=== PATIENT | male | born 1960 | race Caucasian/White ===

== ENCOUNTER 2019-04-14 09:20 | Day surgery (SDC) | payer OTHER ==
[~2019-04-14] VITALS: Ht 182.9 cm; Wt 88.5 kg
[~2019-04-14 09:20] MED LIST: AMLO5 PO; CEPH500 PO; CYCL10 PO; GABA400 PO; GABA800 PO; HYDACE5325 PO; LISI20 PO; NAPR500 PO; PRAZ1 PO; RXHYD5325 PO
--- NOTE | 2019-04-14 11:39 | NUR ---
04/14/[address] IN TO SEE PATIENT. TIME OUT PERFORMED. NERVE BLOCK TO LEFT WRIST/PALM WITH LIDOCAINE WITH EPI. PATIENT TOLERATED WELL. DENIES QUESTIONS AT THIS TIME. ADVISED OF CHANGE IN ANESTHESIA TO DR. LADD. PATIENT UP TO BATHROOM WITH SBA.
== END 2019-04-14 12:45 | disposition home or self-care (01) ==
LOC: ORSCSDS 09:20
PROVIDERS: Orthopaedic Surgery
PROC: 01N54ZZ Release Median Nerve, Percutaneous Endoscopic Approach (ICD-10-PCS; principal; 2019-04-14 11:00)
DX: G56.02 Carpal tunnel syndrome, left upper limb (principal); I10 Essential (primary) hypertension; E78.5 Hyperlipidemia, unspecified; Z79.899 Other long term (current) drug therapy; Z87.891 Personal history of nicotine dependence
CPT/HCPCS: J0690; J2250; J7120

== ENCOUNTER 2020-01-13 05:43 | Emergency (ER) | payer MEDICARE, OTHER ==
[~2020-01-13] VITALS: Ht 182.9 cm; Wt 86.2 kg
== END 2020-01-13 14:15 | disposition home or self-care (01) ==
LOC: ER 05:43
DX: T19.4XXA Foreign body in penis, initial encounter (principal); I10 Essential (primary) hypertension; Z79.899 Other long term (current) drug therapy
CPT/HCPCS: 96374; 96375; 99284-25; J2060; J2270; J2405

== ENCOUNTER 2020-03-26 11:00 | Inpatient (IN) | payer MEDICARE, OTHER ==
[~2020-03-26] VITALS: Ht 185.4 cm; Wt 89.5 kg
--- NOTE | 2020-04-02 10:48 | NUR ---
Ambulatory in Day Surgery History, Chart, Medications and Allergies reviewed before start of procedure.Patient confirms NPO status and agrees with scheduled surgery. Patient reports completing Chlorhexadine shower X2 prior to admission to hospital.PER DR. WOODS PT ONLY NEEDED TO COMPLETE THE 2 SHOWERS AND NOT 5 DAYS OF MUPIROCIN NASAL OINTMENT AND SHOWERS, WILL TREAT WITH VANCO. Lungs clear T/O to Auscultation. Surgical site prepped with 2% Chlorhexidine cloth wipe.
--- NOTE | 2020-04-02 11:07 | NUR ---
REPORT GIVEN TO EMA MARTINEZ
--- NOTE | 2020-04-02 12:39 | NUR ---
TOOK OVER PATIENT CARE AFTER REPORT WAS RECEIVED,
--- NOTE | 2020-04-03 01:40 | NUR ---
PT SITTING IN BED WATCHING TV. DRESSING CDI, ARM IN SLING. PT REP NUMBNESS TO R INDEX FINGER RESOLVED, CONT TO REP NUMBNESS TO R THUMB. ARM IN SLING. REPORT GIVEN TO PATRICE Estrada RN.
[2020-04-03 05:23] LABS: BASOPHILS ABSOLUTE AUTO 0.01 K/mm3 (0.00-0.23); BASOPHILS PERCENT AUTO 0 % (0-2); EOSINOPHILS PERCENT AUTO 0 % (0-6); Hematocrit 37.6 % (37.0-53.0); IMMATURE GRAN ABSOLUTE AUTO 0.09 K/mm3 (0.00-0.10); IMMATURE GRAN PERCENT AUTO 1 % (0-1); LYMPHOCYTES ABSOLUTE AUTO 0.65 K/mm3 (0.84-5.20); LYMPHOCYTES PERCENT AUTO 5 % (21-46); MONOCYTES ABSOLUTE AUTO 0.74 K/mm3 (0.16-1.47); MONOCYTES PERCENT AUTO 5 % (4-13); Mean Corpuscular HGB 27.6 pg (26.0-34.0); Mean Corpuscular HGB Conc 31.9 g/dL (31.5-36.5); Mean Corpuscular Volume 87 fL (80-100); Mean Platelet Volume 12.2 fL (9.1-12.4); NEUTROPHILS ABSOLUTE AUTO 12.64 K/mm3 (1.96-9.15); NEUTROPHILS PERCENT AUTO 90 % (41-73); Platelet Count 220 K/mm3 (150-400); RDW Coefficient Variation 13.8 % (11.7-14.2); RDW Standard Deviation 44.2 fL (35.1-46.3); Red Blood Cell Count 4.34 M/mm3 (4.30-5.90); White Blood Cell Count 14.13 K/mm3 (4.00-11.30)
[2020-04-03 05:33] LABS: Anion Gap 7 mmol/L (6-16); Blood Urea Nitrogen 21 mg/dL (8-24); Bun/Creatinine Ratio 19.8 (12.0-20.0); CO2, Blood 26 mmol/L (21-32); Calcium, Blood 8.4 mg/dL (8.5-10.1); Chloride, Blood 105 mmol/L (98-108); Creatinine, Blood 1.06 mg/dL (0.60-1.20); Glomerular Filtration Rate >60 (60-); Glucose, Blood 118 mg/dL (70-99); Potassium, Blood 5.2 mmol/L (3.5-5.5); Sodium, Blood 138 mmol/L (136-145)
--- NOTE | 2020-04-03 06:59 | NUR ---
SHIFT SUMMARY LYING IN HIGH FOWLERS WITH EYES CLOSED. HAS RESTED OFF AND ON THROUGHOUT SHIFT SINCE ASSUMPTION OF CARE FROM Shun CODY RN USING SBAR. AAO X4, ABLE TO FOLLOW DIRECTIONS. RUE IN IMMOBILIZER, AND AQUACELL TO RIGHT SHOULDER IS C/D/I. RESPIRATIONS EVEN AND UNLABORED ON ROOM AIR. LUNG SOUNDS CLEAR BILATERALLY. ABDOMEN SOFT AND NONDISTENDED. BOWEL SOUNDS NOTED IN ALL QUADS. SCD'S NOTED TO BLE. DENIES PAIN, DISCOMFORT, OR FURTHER NEEDS AT THIS TIME. SAFETY MEASURES IN PLACE. WILL CONTINUE TO MONITOR AND GIVE HAND OFF TO OMCOMING SHIFT USING SBAR DURING BEDSIDE REPORT.
[2020-04-03] MEDS ORDERED: Percocet 5-3251 EACH PO (08:14)
[2020-04-03] MEDS ORDERED: Aspir 8181 MG PO (08:14)
--- NOTE | 2020-04-03 11:43 | NUR ---
DISCHARGE PT WAS PROVIDED WITH WRITTEN AND VERBAL DISCHARGE INSTRUCTIONS; HE REPORTED UNDERSTANDING. PT MEETING ALL GOALS; HE IS VOIDING, CLEARED THERAPY, TOLERATING PO AND PAIN MANAGED. VSS. PT LEFT AT 1140. HE AMBULATED OUT WITHOUT ASSISTANCE FROM STAFF. PT REPORTED HIS WILL BE DRIVING HIM HOME.
--- NOTE | 2020-04-04 09:55 | NUR ---
04/04/20 0955 Polina Collier VERIFICATIONS: EDIT CHART.
== END 2020-04-03 11:41 | disposition home or self-care (01) | DRG 483 ==
LOC: SURS 04-02 09:54
PROVIDERS: ADMIT Orthopaedic Surgery
PROC: 0RRJ00Z Replacement of Right Shoulder Joint with Reverse Ball and Socket Synthetic Substitute, Open Approach (ICD-10-PCS; principal; 2020-04-02 12:30)
DX: M19.011 Primary osteoarthritis, right shoulder (principal); I10 Essential (primary) hypertension
CPT/HCPCS: 36415; 73030; 80048; 85025; 97162; 97166; 97530; 97535; A9270; C1776; J0171; J0690; J0735; J1100; J1885; J2250; J2405; J2704; J2795; J3010; J3370; J7120

== ENCOUNTER 2020-04-19 11:38 | Emergency (ER) | payer OTHER, MEDICARE ==
[~2020-04-19] VITALS: Ht 182.9 cm; Wt 88.9 kg
[~2020-04-19 11:38] MED LIST changes: +Aspir 8181 MG PO; +Percocet 5-3251 EACH PO
== END 2020-04-19 14:34 | disposition left against medical advice (07) ==
LOC: ER 11:38
DX: Z53.21 Procedure and treatment not carried out due to patient leaving prior to being seen by health care provider (principal)

== ENCOUNTER 2020-04-19 15:20 | Emergency (ER) | payer OTHER, MEDICARE ==
[~2020-04-19] VITALS: Ht 182.9 cm; Wt 88.9 kg
== END 2020-04-19 18:52 | disposition left against medical advice (07) ==
LOC: ER 15:20
DX: S43.004A Unspecified dislocation of right shoulder joint, initial encounter (principal); Z53.21 Procedure and treatment not carried out due to patient leaving prior to being seen by health care provider; X58.XXXA Exposure to other specified factors, initial encounter
CPT/HCPCS: 99282

== ENCOUNTER 2020-04-22 10:20 | Emergency (ER) | payer OTHER, MEDICARE ==
[~2020-04-22] VITALS: Ht 182.9 cm; Wt 74.8 kg
[2020-04-22] MEDS ORDERED: Norco 5-325 Ta1 EACH PO (17:13)
== END 2020-04-22 18:16 | disposition home or self-care (01) ==
LOC: ER 10:20
DX: T84.028A Dislocation of other internal joint prosthesis, initial encounter (principal); I10 Essential (primary) hypertension; Z79.82 Long term (current) use of aspirin; Z79.899 Other long term (current) drug therapy
CPT/HCPCS: 23655; 73030; 76000; 96374-59; 99283-25; J1170; J2704; J7030

== ENCOUNTER 2020-05-09 12:38 | Emergency (ER) | payer OTHER, MEDICARE ==
[~2020-05-09] VITALS: Ht 182.9 cm; Wt 81.7 kg
[~2020-05-09 12:38] MED LIST changes: +Norco 5-325 Ta1 EACH PO
[2020-05-09] MEDS ORDERED: NAPR500ERA PO (13:54)
== END 2020-05-09 16:33 | disposition home or self-care (01) ==
LOC: ER 12:38
DX: M24.411 Recurrent dislocation, right shoulder (principal); I10 Essential (primary) hypertension; Z87.891 Personal history of nicotine dependence
CPT/HCPCS: 23655; 73030; 76000; 99283-25; J2704; J7030

== ENCOUNTER 2020-05-17 09:04 | Day surgery (SDC) | payer MEDICARE, OTHER ==
[~2020-05-17] VITALS: Ht 182.9 cm; Wt 89.0 kg
[~2020-05-17 09:04] MED LIST changes: +NAPR500ERA PO
--- NOTE | 2020-05-17 10:42 | NUR ---
Ambulatory in Day Surgery Surgical site prepped with 2% Chlorhexidine cloth wipe. History, Chart, Medications and Allergies reviewed before start of procedure.Lungs clear T/O to Auscultation. Patient confirms NPO status and agrees with scheduled surgery. ALL BELONINGS PLACED UNDER THE BED.
--- NOTE | 2020-05-17 14:18 | NUR ---
ASSUMED CARE FROM RN. PT IS LAYING IN BED AWAKE AND PLEASANT ASKING FOR SOMETHING TO DRINK. RIGHT ARM IN SLING WIGGLES FINGERS CAP REFILL, FINGER 2 SECONDS WAITING FOR XRAY MEDICATING FOR PAIN PRESCRIBED DENIES NAUSEA HE PUT HIS GLASSES ON
--- NOTE | 2020-05-17 15:09 | NUR ---
Dressing to procedure site clean, dry, intact with no visible drainage, swelling, erythema or bruising noted.
--- NOTE | 2020-05-17 15:46 | NUR ---
Dressing to procedure site clean, dry, intact with no visible drainage, swelling, erythema or bruising noted. Discharge instructions reviewed with patient AND OVER THE PHONE WITH . Patient verbalizes understanding. Copy given to patient to take home.
--- NOTE | 2020-05-17 16:00 | NUR ---
Discharged via wheelchair to private car for ride home.
== END 2020-05-17 16:00 | disposition home or self-care (01) ==
LOC: ORSCMMR 09:04 → ORD 11:00 → ORSCMMR 16:00
PROVIDERS: Orthopaedic Surgery
PROC: 0RRJ0J7 Replacement of Right Shoulder Joint with Synthetic Substitute, Glenoid Surface, Open Approach (ICD-10-PCS; principal; 2020-05-17 11:00)
PROC: 0RPJ0JZ Removal of Synthetic Substitute from Right Shoulder Joint, Open Approach (ICD-10-PCS; principal; 2020-05-17 11:00)
DX: M19.011 Primary osteoarthritis, right shoulder (principal); M24.411 Recurrent dislocation, right shoulder; Z96.611 Presence of right artificial shoulder joint; I10 Essential (primary) hypertension; Z87.891 Personal history of nicotine dependence; Z79.899 Other long term (current) drug therapy
CPT/HCPCS: 73030; A9270; C1776; J0171; J0690; J1100; J2370; J2405; J2704; J3010; J7120

== ENCOUNTER 2020-08-12 15:03 | Emergency (ER) | payer MEDICARE, OTHER ==
[~2020-08-12] VITALS: Ht 182.9 cm; Wt 88.9 kg
== END 2020-08-12 17:41 | disposition home or self-care (01) ==
LOC: ER 15:03
DX: T84.028A Dislocation of other internal joint prosthesis, initial encounter (principal); W01.198A Fall on same level from slipping, tripping and stumbling with subsequent striking against other object, initial encounter
CPT/HCPCS: 23655; 73020; 76000; 96374-59; 99283-25; J2704; J3010; J7030

== ENCOUNTER → 2022-03-09 | Outpatient (CLI) | payer MEDICARE, OTHER | LOC: LAB SHORT 10:00 → LAB 10:00 | DX: L02.415 Cutaneous abscess of right lower limb (principal) | CPT/HCPCS: 87070; 87075; 87077; 87147; 87186; 87205 ==

== ENCOUNTER → 2022-10-20 | Outpatient (CLI) | payer MEDICARE, OTHER ==
[2022-10-21 12:31] LABS: Source, Urine Voided
[2022-10-21 15:39] LABS: Triple Phosphate Crystals Many /hpf
[2022-10-21 15:41] LABS: Bacteria Many /hpf; Red Blood Cells, Urine 25-50 /hpf (0-2); Squamous Epithelial Cells Not Seen /hpf (Few); White Blood Cells, Urine 25-50 /hpf (0-5)
== END | disposition home or self-care (01) ==
LOC: LAB SHORT 17:15 → LAB 17:15 → LAB SHORT 10-21 12:27
PROVIDERS: Physician Assistant
DX: R31.29 Other microscopic hematuria (principal)
CPT/HCPCS: 81015; 87077; 87086; 87186

== ENCOUNTER → 2024-02-25 | Outpatient (CLI) | payer MEDICARE | END | disposition home or self-care (01) | LOC: LAB 16:22 → LAB SHORT 16:22 | DX: T81.49XA Infection following a procedure, other surgical site, initial encounter (principal) | CPT/HCPCS: 87070; 87075; 87077; 87147; 87186; 87205 ==

== ENCOUNTER 2024-03-16 01:11 | Day surgery (SDC) | payer MEDICARE ==
[2024-03-16 09:35] VITALS: BP 144/90
[2024-03-16] MEDS ORDERED: OXACILLIN SODIUM2 G1 IV (10:45)
[2024-03-16 10:56] LABS: BASOPHILS ABSOLUTE AUTO 0.05 K/mm3 (0.00-0.23); BASOPHILS PERCENT AUTO 1 % (0-2); EOSINOPHILS ABSOLUTE AUTO 0.44 K/mm3 (0.00-0.68); EOSINOPHILS PERCENT AUTO 11 % (0-6); Hematocrit 34.3 % (37.0-53.0); IMMATURE GRAN ABSOLUTE AUTO 0.01 K/mm3 (0.00-0.10); IMMATURE GRAN PERCENT AUTO 0 % (0-1); LYMPHOCYTES ABSOLUTE AUTO 1.22 K/mm3 (0.84-5.20); LYMPHOCYTES PERCENT AUTO 29 % (21-46); MONOCYTES ABSOLUTE AUTO 0.62 K/mm3 (0.16-1.47); MONOCYTES PERCENT AUTO 15 % (4-13); Mean Corpuscular HGB 28.6 pg (26.0-34.0); Mean Corpuscular HGB Conc 32.1 g/dL (31.5-36.5); Mean Corpuscular Volume 89 fL (80-100); NEUTROPHILS ABSOLUTE AUTO 1.87 K/mm3 (1.96-9.15); NEUTROPHILS PERCENT AUTO 44 % (41-73); Platelet Count 290 K/mm3 (150-400); RDW Coefficient Variation 14.6 % (11.7-14.2); RDW Standard Deviation 46.7 fL (35.1-46.3); Red Blood Cell Count 3.85 M/mm3 (4.30-5.90); White Blood Cell Count 4.21 K/mm3 (4.00-11.30)
[2024-03-16 12:06] LABS: Albumin, Blood 3.1 g/dL (3.4-5.0); Albumin/Globulin Ratio 0.8 (0.8-1.8); Bilirubin, Total 0.3 mg/dL (0.1-1.0); Bun/Creatinine Ratio 14.2 (12.0-20.0); Calcium, Blood 9.3 mg/dL (8.5-10.1); Creatinine, Blood 1.13 mg/dL (0.60-1.20); Globulin, Blood 3.7 g/dL (2.2-4.0); Potassium, Blood 3.8 mmol/L (3.5-5.5); Total Protein, Blood 6.8 g/dL (6.4-8.2)
== END 2024-03-16 09:55 | disposition home or self-care (01) ==
LOC: ATC 01:11
DX: T84.50XA Infection and inflammatory reaction due to unspecified internal joint prosthesis, initial encounter (principal); G89.4 Chronic pain syndrome; E78.5 Hyperlipidemia, unspecified; I10 Essential (primary) hypertension
CPT/HCPCS: 36592; 80053; 85025; 86140

== ENCOUNTER 2024-03-23 00:22 | Day surgery (SDC) | payer MEDICARE ==
[~2024-03-23 00:22] MED LIST changes: +OXACILLIN SODIUM2 G1 IV
[2024-03-23 09:41] VITALS: BP 119/83
[2024-03-23 10:47] LABS: BASOPHILS PERCENT AUTO 3 % (0-2); EOSINOPHILS ABSOLUTE AUTO 0.43 K/mm3 (0.00-0.68); EOSINOPHILS PERCENT AUTO 11 % (0-6); Hematocrit 37.6 % (37.0-53.0); IMMATURE GRAN ABSOLUTE AUTO 0.01 K/mm3 (0.00-0.10); IMMATURE GRAN PERCENT AUTO 0 % (0-1); LYMPHOCYTES ABSOLUTE AUTO 1.32 K/mm3 (0.84-5.20); LYMPHOCYTES PERCENT AUTO 33 % (21-46); MONOCYTES ABSOLUTE AUTO 0.64 K/mm3 (0.16-1.47); MONOCYTES PERCENT AUTO 16 % (4-13); Mean Corpuscular HGB 28.3 pg (26.0-34.0); Mean Corpuscular HGB Conc 31.9 g/dL (31.5-36.5); Mean Corpuscular Volume 89 fL (80-100); Mean Platelet Volume 12.2 fL (9.1-12.4); NEUTROPHILS PERCENT AUTO 37 % (41-73); Platelet Count 250 K/mm3 (150-400); RDW Coefficient Variation 14.6 % (11.7-14.2); RDW Standard Deviation 46.5 fL (35.1-46.3); Red Blood Cell Count 4.24 M/mm3 (4.30-5.90)
[2024-03-23 11:50] LABS: Albumin/Globulin Ratio 0.8 (0.8-1.8); Bilirubin, Total 0.4 mg/dL (0.1-1.0); Bun/Creatinine Ratio 22.1 (12.0-20.0); C-REACTIVE PROTEIN, EXT RANGE 1.13 mg/dL (0.000-0.300); Calcium, Blood 9.2 mg/dL (8.5-10.1); Creatinine, Blood 1.13 mg/dL (0.60-1.20); Globulin, Blood 3.7 g/dL (2.2-4.0); Potassium, Blood 3.6 mmol/L (3.5-5.5); Total Protein, Blood 6.7 g/dL (6.4-8.2)
== END 2024-03-23 10:13 | disposition home or self-care (01) ==
LOC: ATC 00:22
PROVIDERS: Student in an Organized Health Care Education/Training Program
DX: T84.50XA Infection and inflammatory reaction due to unspecified internal joint prosthesis, initial encounter (principal); G89.4 Chronic pain syndrome; E78.5 Hyperlipidemia, unspecified; I10 Essential (primary) hypertension
CPT/HCPCS: 36592; 80053; 85025; 86140

== ENCOUNTER 2024-03-30 02:46 | Day surgery (SDC) | payer MEDICARE ==
[2024-03-30 09:35] VITALS: BP 143/86
[2024-03-30 11:40] LABS: BASOPHILS PERCENT AUTO 2 % (0-2); EOSINOPHILS ABSOLUTE AUTO 0.66 K/mm3 (0.00-0.68); EOSINOPHILS PERCENT AUTO 15 % (0-6); Hematocrit 38.2 % (37.0-53.0); Hemoglobin 12.4 g/dL (13.5-17.5); IMMATURE GRAN ABSOLUTE AUTO 0.01 K/mm3 (0.00-0.10); IMMATURE GRAN PERCENT AUTO 0 % (0-1); LYMPHOCYTES ABSOLUTE AUTO 1.48 K/mm3 (0.84-5.20); LYMPHOCYTES PERCENT AUTO 33 % (21-46); MONOCYTES ABSOLUTE AUTO 0.54 K/mm3 (0.16-1.47); MONOCYTES PERCENT AUTO 12 % (4-13); Mean Corpuscular HGB 28.7 pg (26.0-34.0); Mean Corpuscular HGB Conc 32.5 g/dL (31.5-36.5); Mean Corpuscular Volume 88 fL (80-100); Mean Platelet Volume 12.5 fL (9.1-12.4); NEUTROPHILS ABSOLUTE AUTO 1.73 K/mm3 (1.96-9.15); NEUTROPHILS PERCENT AUTO 38 % (41-73); Platelet Count 225 K/mm3 (150-400); RDW Coefficient Variation 14.6 % (11.7-14.2); RDW Standard Deviation 47.6 fL (35.1-46.3); Red Blood Cell Count 4.32 M/mm3 (4.30-5.90); White Blood Cell Count 4.52 K/mm3 (4.00-11.30)
[2024-03-30 12:43] LABS: Albumin, Blood 2.9 g/dL (3.4-5.0); Albumin/Globulin Ratio 0.8 (0.8-1.8); Bilirubin, Total 0.2 mg/dL (0.1-1.0); Bun/Creatinine Ratio 21.3 (12.0-20.0); C-REACTIVE PROTEIN, EXT RANGE 0.46 mg/dL (0.000-0.300); Calcium, Blood 8.9 mg/dL (8.5-10.1); Creatinine, Blood 1.08 mg/dL (0.60-1.20); Globulin, Blood 3.7 g/dL (2.2-4.0); Potassium, Blood 3.7 mmol/L (3.5-5.5); Total Protein, Blood 6.6 g/dL (6.4-8.2)
== END 2024-03-30 09:58 | disposition home or self-care (01) ==
LOC: ATC 02:46
PROVIDERS: Student in an Organized Health Care Education/Training Program
DX: G89.4 Chronic pain syndrome (principal); T84.59XA Infection and inflammatory reaction due to other internal joint prosthesis, initial encounter; I10 Essential (primary) hypertension; E78.5 Hyperlipidemia, unspecified; Z79.899 Other long term (current) drug therapy; Z87.891 Personal history of nicotine dependence
CPT/HCPCS: 36592; 80053; 85025; 86140

== ENCOUNTER 2024-04-06 01:29 | Day surgery (SDC) | payer MEDICARE ==
[2024-04-06 09:25] VITALS: BP 116/68
[2024-04-06 09:47] LABS: BASOPHILS ABSOLUTE AUTO 0.07 K/mm3 (0.00-0.23); BASOPHILS PERCENT AUTO 1 % (0-2); EOSINOPHILS ABSOLUTE AUTO 0.91 K/mm3 (0.00-0.68); EOSINOPHILS PERCENT AUTO 16 % (0-6); Hematocrit 35.6 % (37.0-53.0); Hemoglobin 11.7 g/dL (13.5-17.5); IMMATURE GRAN ABSOLUTE AUTO 0.01 K/mm3 (0.00-0.10); IMMATURE GRAN PERCENT AUTO 0 % (0-1); LYMPHOCYTES ABSOLUTE AUTO 1.14 K/mm3 (0.84-5.20); LYMPHOCYTES PERCENT AUTO 20 % (21-46); MONOCYTES ABSOLUTE AUTO 0.51 K/mm3 (0.16-1.47); MONOCYTES PERCENT AUTO 9 % (4-13); Mean Corpuscular HGB 28.9 pg (26.0-34.0); Mean Corpuscular HGB Conc 32.9 g/dL (31.5-36.5); Mean Corpuscular Volume 88 fL (80-100); Mean Platelet Volume 11.5 fL (9.1-12.4); NEUTROPHILS ABSOLUTE AUTO 2.99 K/mm3 (1.96-9.15); NEUTROPHILS PERCENT AUTO 53 % (41-73); Platelet Count 209 K/mm3 (150-400); RDW Coefficient Variation 14.3 % (11.7-14.2); RDW Standard Deviation 46.2 fL (35.1-46.3); Red Blood Cell Count 4.05 M/mm3 (4.30-5.90); White Blood Cell Count 5.63 K/mm3 (4.00-11.30)
[2024-04-06 10:16] LABS: C-REACTIVE PROTEIN, EXT RANGE 1.28 mg/dL (0.000-0.300)
[2024-04-06 10:18] LABS: Albumin, Blood 2.8 g/dL (3.4-5.0); Albumin/Globulin Ratio 0.7 (0.8-1.8); Bilirubin, Total 0.2 mg/dL (0.1-1.0); Bun/Creatinine Ratio 17.1 (12.0-20.0); Calcium, Blood 8.5 mg/dL (8.5-10.1); Creatinine, Blood 1.17 mg/dL (0.60-1.20); Globulin, Blood 3.8 g/dL (2.2-4.0); Potassium, Blood 3.9 mmol/L (3.5-5.5); Total Protein, Blood 6.6 g/dL (6.4-8.2)
--- NOTE | 2024-04-06 11:37 | NUR ---
LAB RESULTS FROM TODAY FAXED TO DR. MALIK'S OFFICE.
== END 2024-04-06 09:43 | disposition home or self-care (01) ==
LOC: ATC 01:29
PROVIDERS: Student in an Organized Health Care Education/Training Program
DX: T84.59XD Infection and inflammatory reaction due to other internal joint prosthesis, subsequent encounter (principal); G89.4 Chronic pain syndrome; E78.5 Hyperlipidemia, unspecified; I10 Essential (primary) hypertension; Z87.891 Personal history of nicotine dependence
CPT/HCPCS: 36592; 80053; 85025; 86140

== ENCOUNTER 2024-04-11 00:37 | Day surgery (SDC) | payer MEDICARE ==
[2024-04-11 09:17] VITALS: BP 129/91
== END 2024-04-11 09:20 | disposition home or self-care (01) ==
LOC: ATC 00:37
DX: T84.50XD Infection and inflammatory reaction due to unspecified internal joint prosthesis, subsequent encounter (principal); I10 Essential (primary) hypertension; E78.5 Hyperlipidemia, unspecified; Z79.899 Other long term (current) drug therapy
CPT/HCPCS: 99211